=== PATIENT | female | born 1965 | race Asian ===

== ENCOUNTER 2016-08-01 19:19 | Emergency (ER) | payer MEDICARE, OTHER ==
[~2016-08-01] VITALS: Ht 154.9 cm; Wt 90.0 kg
[~2016-08-01 19:19] MED LIST: ACET-2902 PO; ALBU8HFA4 IH; ALLO100T PO; BUDE10.2 IH; CALC1TAB90 PO; CETI-260 PO; FENO160T16 PO; FLUT16H NASAL; GABA-531 PO; HYDR25TA PO; LEVO25TA9 PO; MULT-1203 PO; NAPR-58 PO; PANT40TA25 PO; POTA8TAB4 PO; RIVA20TA PO; SERT50TA12 PO; VITAD1000 PO; ZOLP5 PO
[2016-08-01 22:54] LABS: APPEARANCE,URINE CLEAR (CLEAR); GLUCOSE, URINE (UA) NEGATIVE (NEGATIVE); KETONES,URINE NEGATIVE (NEGATIVE); LEUKOCYTE ESTERASE ,URINE SMALL (NEGATIVE); OCCULT BLOOD,URINE NEGATIVE (NEGATIVE); PROTEIN,URINE NEGATIVE (NEGATIVE)
[2016-08-01 23:06] LABS: SQUAMOUS EPITHELIAL CELL,UR Moderate /LPF (None Seen)
[2016-08-01 23:07] LABS: RBC,URINE 0-2 /HPF (0-2)
[2016-08-01 23:29] VITALS: BP 125/73
== END 2016-08-01 23:34 | disposition home or self-care (01) ==
LOC: EMS 19:21
DX: S16.1XXA Strain of muscle, fascia and tendon at neck level, initial encounter (principal); E03.9 Hypothyroidism, unspecified; I10 Essential (primary) hypertension; J45.909 Unspecified asthma, uncomplicated; Z88.1 Allergy status to other antibiotic agents; V89.2XXA Person injured in unspecified motor-vehicle accident, traffic, initial encounter; Y93.89 Activity, other specified; Y92.89 Other specified places as the place of occurrence of the external cause; Y99.8 Other external cause status
CPT/HCPCS: 87086; 99284